=== PATIENT | female | born 1955 | race African-American/Black ===

== ENCOUNTER 2018-02-20 12:02 | Inpatient (IN) | payer OTHER, MEDICAID ==
[~2018-02-20] VITALS: Ht 165.1 cm; Wt 102.1 kg
[2018-02-20] MEDS ORDERED: METHYLPREDNISOLONE SOD SUCC 125 MG/2 ML VIAL IV STA (12:57)
[2018-02-20] MEDS ORDERED: LEVOFLOXACIN 750MG PREMIX 150 ML IV ONE (13:00)
[2018-02-20] MEDS ORDERED: IPRATROPIUM/ALBUTEROL 0.5-3(2.5)MG/3ML NEB HHN ONE ×2 (13:00→19:00)
[2018-02-20 13:18] LABS: BG BASE EXCESS 2.4 mmol/L (-2.0-2.0); BG CARBOXYHEMOGLOBIN 1.7 % (0.5-1.5); BG DEOXYHEMOGLOBIN 4.3 % (0.0-5.0); BG HCO3 ACT 28.3 mmol/L (22.0-26.0); BG METHEMOGLOBIN 0.4 % (0.0-1.5); BG OXYGEN SATURATION 95.6 % (92.0-98.5); BG OXYHEMOGLOBIN 93.6 % (94.0-97.0); BG PO2 80.2 mmHg (75.0-100.0); BG SAMPLE SITE RIGHT RADIAL; BG TOTAL HEMOGLOBIN 13.6 g/dL (12.0-18.0); BG VENT MODE NASAL CANNULA
[2018-02-20 13:19] LABS: HEMATOCRIT. 41.4 % (36.0-48.0); HEMOGLOBIN. 13.6 g/dL (12.0-16.0); MEAN CORPUSCULAR HEMOGLOBIN 28.8 pg (28.0-32.0); MEAN PLATELET VOLUME 9.9 fl (7.4-10.4); PLATELET 336 x1000/uL (130-400); RED BLOOD CELL COUNT 4.71 mill/uL (4.2-5.4); RED CELL DISTRIBUTION WIDTH 14.5 % (11.6-14.6)
[2018-02-20 13:26] LABS: CHLORIDE 106 mEq/L (98-107)
[2018-02-20 13:28] LABS: INR 1.1; PARTIAL THROMBOPLASTIN TIME 24.4 sec (23.4-31.0); PROTHROMBIN TIME 10.6 sec (9.1-11.1)
[2018-02-20 13:30] LABS: ETHANOL BLOOD < 10 mg/dL
[2018-02-20 13:38] LABS: PLATELET ESTIMATE NORMAL
[2018-02-20] MEDS ORDERED: ALBUTEROL (0.083%) 2.5MG/3ML NEB ONE (15:09)
[2018-02-20] MEDS ORDERED: IPRATROPIUM BROMIDE (0.02%) 0.5MG/2.5ML NEB ONE (15:10)
[2018-02-20] MEDS ORDERED: LIDOCAINE HCL/PF 1% 2ML VIAL ONE (15:30)
[2018-02-20 18:50] LABS: OPIATES URINE SCREEN PRESUMTIVE POSITIVE (NEGATIVE)
[2018-02-20 18:52] LABS: *AMPHETAMINES SCREEN URINE NEGATIVE (NEGATIVE); *BARBITURATES SCREEN URINE NEGATIVE (NEGATIVE); *BENZODIAZEPINES SCREEN URINE NEGATIVE (NEGATIVE); *COCAINE SCREEN URINE PRESUMTIVE POSITIVE (NEGATIVE); CANNABINOID URINE SCREEN NEGATIVE (NEGATIVE); PHENCYCLIDINE URINE SCREEN NEGATIVE (NEGATIVE)
[2018-02-20 18:53] LABS: METHADONE URINE SCREEN NEGATIVE (NEGATIVE)
[2018-02-20] MEDS ORDERED: LORAZEPAM 1MG TABLET PO ONE (19:00)
[2018-02-20 22:13] VITALS: BP 171/99
[2018-02-20 22:22] VITALS: BP 171/99
[2018-02-20] MEDS ORDERED: NON FORMULARY PATIENT HOME MED EA XX SCH (23:00)
[2018-02-20] MEDS ORDERED: LORAZEPAM 1MG TABLET PO PRN (23:00)
[2018-02-20] MEDS ORDERED: HYDROCODONE/ACETAMINOPHEN 10/325MG TABLET PO PRN (23:00)
[2018-02-21] VITALS (7 sets, daily range): BP systolic 132–158; BP diastolic 80–88
[2018-02-21] MEDS ORDERED: IPRATROPIUM/ALBUTEROL 0.5-3(2.5)MG/3ML NEB HHN PRN
[2018-02-21] MEDS: METHYLPREDNISOLONE SOD SUCC 40 MG/ML VIAL IV SCH ×3 (02:14→15:35)
[2018-02-21] MEDS: ALBUTEROL (0.083%) 2.5MG/3ML NEB HHN SCH ×3 (05:09→14:22)
[2018-02-21] MEDS ORDERED: LEVOFLOXACIN 500MG PREMIX 100 ML IV SCH ×2 (09:00→14:00)
[2018-02-21] MEDS ORDERED: AMLODIPINE 10MG TABLET PO SCH (09:00)
[2018-02-21] MEDS ORDERED: BUDESONIDE 0.5MG/2ML NEB HHN SCH (09:00)
[2018-02-21] MEDS ORDERED: LOSARTAN POTASSIUM 50 MG TABLET PO SCH (11:00)
[2018-02-21] MEDS ORDERED: SODIUM CHLORIDE 0.9% 1000ML BAG (SEPSIS BOLUS) IV ONE (14:00)
[2018-02-21] MEDS ORDERED: SODIUM CHLORIDE 0.9% 1,000 ML IV SCH (14:15)
[2018-02-21 14:24] LABS: CLARITY URINE CLEAR (CLEAR); KETONES URINE TRACE (NEGATIVE); LEUKOCYTE ESTERASE URINE NEGATIVE (NEGATIVE); NITRITE URINE NEGATIVE (NEGATIVE); OCCULT BLOOD URINE NEGATIVE (NEGATIVE); PROTEIN URINE NEGATIVE (NEGATIVE); SPECIFIC GRAVITY URINE 1.031 (1.005-1.030); UROBILINOGEN URINE 0.2 E.U./dL (0.2-1.0)
[2018-02-21 14:25] LABS: COLOR URINE PALE YELLOW (YELLOW)
[2018-02-21] MEDS ORDERED: MONTELUKAST SODIUM 10MG TABLET PO SCH (17:00)
== END 2018-02-21 19:13 | disposition short-term general hospital (02) | DRG 189 ==
LOC: ER 12:02 → 6WST 16:08 → EDBEDREQ 16:12 → EDBEDREQTM 16:12 → ENRESERV 20:12
PROVIDERS: ADMIT Internal Medicine; ATTEND Internal Medicine
DX: J96.20 Acute and chronic respiratory failure, unspecified whether with hypoxia or hypercapnia (principal); J44.1 Chronic obstructive pulmonary disease with (acute) exacerbation; J98.11 Atelectasis; E66.9 Obesity, unspecified; F14.90 Cocaine use, unspecified, uncomplicated; F17.200 Nicotine dependence, unspecified, uncomplicated; I10 Essential (primary) hypertension; F41.9 Anxiety disorder, unspecified; Z88.2 Allergy status to sulfonamides; Z68.37 Body mass index [BMI] 37.0-37.9, adult
CPT/HCPCS: 36415; 36600; 71045; 80305; 82375; 82805; 83605; 83880; 84484; 93005; 94640; 96365; 96366; 96375; 99285; G0482; J1956; J2920; J2930; J3490; J7030; J7611; J7620; J7626

== ENCOUNTER 2024-01-06 11:15 | Emergency (ER) | payer OTHER, MEDICAID ==
[~2024-01-06] VITALS: Ht 172.7 cm; Wt 80.0 kg
[2024-01-06] MEDS: MORPHINE SULFATE 4 MG/ML INJ (FOR IV/IM USE) IV ONE (11:44)
[2024-01-06 11:50] VITALS: PULSE 92; RESP 24; O2SAT 100
[2024-01-06] MEDS: ALBUTEROL (0.083%) 2.5MG/3ML NEB HHN STA ×2 (11:52→12:44)
[2024-01-06] MEDS: IPRATROPIUM BROMIDE (0.02%) 0.5MG/2.5ML NEB HHN STA (11:52)
[2024-01-06 12:10] LABS: BASOPHILS % 0.7 % (0.0-2.0); EOSINOPHILS % 2.7 % (0.0-5.0); HEMATOCRIT. 25.6 % (36.0-48.0); HEMOGLOBIN. 7.1 g/dL (12.0-16.0); LYMPHOCYTES % 28.1 % (20.0-50.0); MEAN CORPUSCULAR HEMOGLOBIN 18.5 pg (28.0-32.0); MEAN CORPUSCULAR HGB CONC 27.8 g/dL (31.0-37.0); MEAN CORPUSCULAR VOLUME 66.7 fL (81.0-99.0); MEAN PLATELET VOLUME 7.1 fl (7.4-10.4); MONOCYTES % 10.6 % (2.0-8.0); NEUTROPHILS % 57.9 % (40.0-76.0); PLATELET 356 x1000/uL (130-400); RED BLOOD CELL COUNT 3.84 mill/uL (4.2-5.4); RED CELL DISTRIBUTION WIDTH 19.8 % (11.6-14.6); WHITE BLOOD COUNT 5.9 x1000/uL (4.5-11.0)
[2024-01-06 12:21] LABS: CHLORIDE 106 mEq/L (98-107); POTASSIUM 3.7 mEq/L (3.5-5.1); SODIUM 138 mEq/L (136-145)
[2024-01-06 12:22] LABS: CALCIUM 8.9 mg/dL (8.7-10.4); CARBON DIOXIDE 26 mEq/L (21-32)
[2024-01-06 12:26] VITALS: PULSE 93; RESP 20; O2SAT 98
[2024-01-06 12:27] LABS: CREATININE 0.9 mg/dL (0.6-1.0); GLUCOSE 251 mg/dL (70-105); UREA NITROGEN BLOOD 13 mg/dL (9-23)
[2024-01-06 12:29] LABS: ADD RBC MORPHOLOGY YES; DIFFERENTIAL COMMENT 1
[2024-01-06 12:40] LABS: TROPONIN I HIGH SENSITIVITY < 4 ng/L (3.0-34)
[2024-01-06 13:00] LABS: PLATELET ESTIMATE NORMAL
[2024-01-06 13:01] LABS: ANISOCYTOSIS 3+; HYPOCHROMASIA 1+; MICROCYTOSIS 1+
[2024-01-06] MEDS: MAGNESIUM 2 G PREMIX 50 ML IV STA (13:16)
[2024-01-06] MEDS: METHYLPREDNISOLONE SOD SUCC 125MG/2ML (ACT-O-VIAL) IV STA (13:17)
[2024-01-06 15:05] VITALS: BP 126/66; PULSE 91; RESP 18; TEMP 36.72516; O2SAT 98
== END 2024-01-06 15:30 | disposition short-term general hospital (02) ==
LOC: ER 11:15
DX: R07.89 Other chest pain (principal); J44.1 Chronic obstructive pulmonary disease with (acute) exacerbation; E11.9 Type 2 diabetes mellitus without complications; Z88.2 Allergy status to sulfonamides
CPT/HCPCS: 99285; 96365; 96375; 71045; 80048; 83880; 85025; 84484; 36415; 94640; 93005; J3475; J2919; J2270